=== PATIENT | male | born 1985 | race American Indian/Alaskan Native ===

== ENCOUNTER 2017-11-04 09:34 | Inpatient (IN) | payer OTHER ==
[2017-11-04 10:14] LABS: Basophils % (Auto) 0.2 % (0.0-1.8); Eosinophils % (Auto) 0.2 % (0.0-4.3); Hematocrit 51.8 % (35.5-45.6); Hemoglobin 16.9 gm/dl (11.8-15.2); Mean Corpuscular HGB Conc 33 % (32-34); Mean Corpuscular Hemoglobin 27 pg (28-32); Mean Corpuscular Volume 83 fl (84-94); Platelet Count 242 K/mm3 (140-440); Red Blood Count 6.26 M/mm3 (3.65-5.03); Red Cell Distribution Width 14.2 % (13.2-15.2)
[2017-11-04 10:26] LABS: Anion Gap 34 mmol/L; BUN/Creatinine Ratio 18; Blood Urea Nitrogen 20 mg/dL (9-20); Calcium 10.1 mg/dL (8.4-10.2); Carbon Dioxide 17 mmol/L (22-30); Glucose 357 mg/dL (75-100); Sodium 138 mmol/L (137-145)
[2017-11-04 10:51] LABS: Bilirubin,Urine NEG (Negative); Blood,Urine MOD (Negative); Ketones,Urine 80 mg/dL (Negative); Leukocyte Esterase,Urine NEG (Negative); Mucus,Urine FEW /HPF; Nitrite,Urine NEG (Negative); Urobilinogen,Urine < 2.0 mg/dL (<2.0)
[2017-11-04] MEDS ORDERED: NACL 0.9% 1000 ML 1,000 ML IV ONE (11:05)
[2017-11-04] MEDS ORDERED: ZOFRAN IV ONE (11:06)
[2017-11-04 11:29] LABS: Ketones Moderate (Negative)
[2017-11-04 11:32] LABS: Amylase 35 units/L (27-131); Lipase 52 units/L (13-60)
[2017-11-04 11:36] LABS: Alanine Aminotransferase 26 units/L (7-56); Albumin 4.1 g/dL (3.9-5); Albumin/Globulin Ratio 0.9 %; Alkaline Phosphatase 159 units/L (35-129); Bilirubin,Direct 0.3 mg/dL (0-0.2); Bilirubin,Indirect 0.6 mg/dL; Total Protein 8.8 g/dL (6.3-8.2)
--- NOTE | 2017-11-04 11:36 | Emergency Department Report ---
ED Abdominal Pain HPI - General Chief Complaint: Nausea/Vomiting/Diarrhea Stated Complaint: VOMITING Time Seen by Provider: 11/04/17 10:05 Source: patient, family, old records reviewed Mode of arrival: Ambulatory Limitations: No Limitations - History of Present Illness Initial Comments: saw pcp yesterday Dr Melgoza for n/v bs was in 200's and pcp not concerned he was sent home w jun the n/v got worse here to er today -: Gradual Severity: moderate Consistency: intermittent Improves With: nothing Worsens With: other (augmentin) Context: other (hx dm; saw pcp yest) Associated Symptoms: nausea, vomiting, diarrhea. denies: fever, chills, constipation, dysuria, hematemesis, hematochezia, melena, hematuria, anorexia, syncope - Related Data Allergies Allergy/AdvReac Type Severity Reaction Status Date / Time milk Allergy Diarrhea Verified 11/04/17 09:39 ED Review of Systems ROS: Stated complaint: VOMITING Other details as noted in HPI Comment: All other systems reviewed and negative Constitutional: no symptoms reported Cardiovascular: other (no hx htn) Gastrointestinal: nausea, vomiting, diarrhea Genitourinary: other (no noted hematuria or dysruia; no freq ) ED Past Medical Hx - Past Medical History Previous Medical History?: Yes Hx Hypertension: No (denies) Hx Diabetes: Yes (Type 2) Hx Kidney Stones: No Additional medical history: home meds humulin, metformin, invocana, actos - Surgical History Past Surgical History?: Yes Additional Surgical History: Left knee - Social History Smoking Status: Never Smoker Substance Use Type: Alcohol, Prescribed ED Physical Exam - General Limitations: No Limitations General appearance: alert, in no apparent distress - Head Head exam: Present: atraumatic - Eye Eye exam: Present: PERRL, EOMI - ENT ENT exam: Present: mucous membranes moist, TM's normal bilaterally - Neck Neck exam: Present: normal inspection - Respiratory Respiratory exam: Present: normal lung sounds bilaterally - Cardiovascular Cardiovascular Exam: Present: regular rate, tachycardia (on admit; trending down w fluids) - GI/Abdominal GI/Abdominal exam: Present: soft, normal bowel sounds. Absent: distended, tenderness, guarding, rebound, rigid, diminished bowel sounds, hyperactive bowel sounds, hypoactive bowel sounds, organomegaly, mass, bruit, pulsatile mass , hernia - Rectal Rectal exam: Present: deferred - Extremities Exam Extremities exam: Present: normal inspection, full ROM - Back Exam Back exam: Present: normal inspection, full ROM. Absent: CVA tenderness (R), CVA tenderness (L) - Neurological Exam Neurological exam: Present: alert, oriented X3, CN II-XII intact, normal gait - Psychiatric Psychiatric exam: Present: normal affect, normal mood - Skin Skin exam: Present: warm, dry, intact, normal color. Absent: rash ED Course Vital Signs 11/04/17 09:39 Temperature 98.5 F Pulse Rate 115 H Respiratory 22 Rate Blood Pressure 151/107 O2 Sat by Pulse 99 Oximetry - Reevaluation(s) Reevaluation #1: 11/04/17 13:42 to er w n/v saw pcp yest worse p augment dm w inc bs yest and even inc more today despite not eating much he reports large diff in scales at dr melgoza and er- 7 pounds dec in 24 hours: ? scale issue no cp no sob non ill non toxic no fever ambulatory neuro intact no focal neuro def mom at bedside pt reports last [id number] to be 13 about 2 m ago he states he is compliant but mom states he is not he has a 8 yo child had abn urine yest at pcp hematuria today labs noted ct to ro stone ct neg fluids, insulin IV Reevaluation #2: 11/04/17 13:14 pt updated educated on poc bs dec discussed with Dr Plummer will admit given anion gap 1 Reevaluation #3: 11/04/17 13:17 hr 90 bp dec 145/90 no acute distress reports feeling better no n/v here in er taking po Reevaluation #4: 11/04/17 13:42 Dr Madison phoned- he will admit the pt pat and mother updated rn aware ED Medical Decision Making - Lab Data Result diagrams: 11/04/17 09:52 11/04/17 09:52 - Medical Decision Making see note - Differential Diagnosis ro kidney stone Critical care attestation.: If time is entered above; I have spent that time in minutes in the direct care of this critically ill patient, excluding procedure time. ED Disposition Clinical Impression: Diabetes, Hyperglycemia, Hematuria, Elevated blood pressure reading, DKA ( diabetic ketoacidoses), Vomiting Disposition: DC- OP ADMIT IP TO THIS HOSP Is pt being admited?: Yes Does the pt Need Aspirin: No Condition: Stable Additional Instructions: diabetic diet follow blood sugar hydrate well stop augment cipro as ordered today see Dr Melgoza on Monday follow up urology for hematuria CT today is normal. Referrals: SHAMEKA MELGOZA MD [Primary Care Provider] - 3-5 Days Time of Disposition: 13:17
--- NOTE | 2017-11-04 11:50 | Cat Scan Report ---
CT scan of abdomen and pelvis without IV contrast: History: Hematuria. Abdominal pain. Findings: Normal lung bases. No pleural pericardial effusion. Next normal liver spleen pancreas and gallbladder. Normal adrenals kidney parenchyma uterine bladder. No free intraperitoneal fluid or air. No evidence of adenopathy. Gaseous colon and a small volume of stool in colon. Normal appendix. No evidence of diverticulitis. Impression: Essentially negative CT scan of abdomen.
[2017-11-04] MEDS ORDERED: LIDOCAINE VISCOUS 2% PO ONE (11:51)
[2017-11-04] MEDS ORDERED: ALUM-MAG HYDROX-SIMETH 200-200-20MG/5ML PO ONE (11:51)
[2017-11-04] MEDS ORDERED: PEPCID PO ONE (11:52)
--- NOTE | 2017-11-04 13:54 | History and Physical Report ---
History of Present Illness Chief complaint: I feel sick, History of present illness: 32 YO Male with DM currently taking Invokana presents to ED for evaluation. Pt states that he has experienced weakness, Nausea, multiple episodes of vomiting, inability to tolerate oral intake, and multiple loose stool. Pt found to have elevated blood glucose and seeks medical attention. Pt seen and evaluated in ED and found to have DKA. Pt treated IAW DKA protocol and admitted to ICU. Pt denies fever, chills, CP, Palpitations, constipation, dysuria, hematemesis, hematochezia, melena, hematuria, anorexia, syncope, productive cough, prolonged travel/immobility, individual/family history of DVT/PE, or recent ill contacts. Past History Past Medical History: diabetes Past Surgical History: Other (L Knee surgery) Social history: single, lives with family. denies: smoking, alcohol abuse, prescription drug abuse Family history: diabetes, hypertension Medications and Allergies Allergies Allergy/AdvReac Type Severity Reaction Status Date / Time milk Allergy Diarrhea Verified 11/04/17 09:39 Review of Systems Constitutional: weakness, no fever, no chills, no sweats Ears, nose, mouth and throat: no ear pain, no ear discharge, no tinnitis, no decreased hearing, no nose pain Cardiovascular: no chest pain, no orthopnea, no palpitations, no rapid/ irregular heart beat, no edema Respiratory: no cough, no cough with sputum, no excessive sputum, no hemoptysis Gastrointestinal: abdominal pain, nausea, vomiting, diarrhea Genitourinary Male: no dysuria, no hematuria, no flank pain, no discharge, no urinary frequency Rectal: no pain, no incontinence, no bleeding Musculoskeletal: no neck stiffness, no neck pain, no shooting arm pain, no arm numbness/tingling Integumentary: no rash, no pruritis, no redness, no sores, no wounds Neurological: no head injury, no transient paralysis, no paralysis, no weakness , no parathesias, no numbness Psychiatric: no anxiety, no memory loss, no change in sleep habits, no sleep disturbances, no insomnia Endocrine: excessive thirst, polyuria, no cold intolerance, no heat intolerance Hematologic/Lymphatic: no easy bruising, no easy bleeding Allergic/Immunologic: no urticaria, no allergic rhinitis, no wheezing Exam - Constitutional Vitals: Temp Pulse Resp BP Pulse Ox 98.5 F 115 H 22 151/107 99 11/04/17 09:39 11/04/17 09:39 11/04/17 09:39 11/04/17 09:39 11/04/17 09:39 General appearance: Present: mild distress - EENT Eyes: Present: PERRL ENT: hearing intact, clear oral mucosa - Neck Neck: Present: supple, normal ROM - Respiratory Respiratory effort: normal Respiratory: bilateral: CTA - Cardiovascular Heart Sounds: Present: S1 & S2. Absent: rub, click - Extremities Extremities: pulses symmetrical, No edema Peripheral Pulses: within normal limits - Abdominal General gastrointestinal: Present: soft, non-tender, non-distended, normal bowel sounds Male genitourinary: Present: normal - Integumentary Integumentary: Present: clear, dry, clammy, decreased turgor - Musculoskeletal Musculoskeletal: gait normal, strength equal bilaterally - Psychiatric Psychiatric: appropriate mood/affect, intact judgment & insight - Neurologic Neurologic: CNII-XII intact, moves all extremities Results - Labs CBC & Chem 7: 11/04/17 09:52 11/04/17 09:52 Labs: Abnormal lab results 11/04/17 11/04/17 11/04/17 Range/Units 09:50 09:52 09:52 RBC 6.26 H (3.65-5.03) M/mm3 Hgb 16.9 H (11.8-15.2) gm/dl Hct 51.8 H (35.5-45.6) % MCV 83 L (84-94) fl MCH 27 L (28-32) pg Lymph % (Auto) 9.2 L (13.4-35.0) % [place] % (Auto) 7.8 H (0.0-7.3) % Lymph # 1.0 L (1.2-5.4) K/mm3 [place] # 0.9 H (0.0-0.8) K/mm3 Seg Neutrophils % 82.6 H (40.0-70.0) % Seg Neutrophils # 9.1 H (1.8-7.7) K/mm3 Chloride 92.0 L (98-107) mmol/L Carbon Dioxide 17 L (22-30) mmol/L Glucose 357 H (75-100) mg/dL POC Glucose 349 H (70-105) Direct Bilirubin (0-0.2) mg/dL Alkaline Phosphatase (35-129) units/L Total Protein (6.3-8.2) g/dL 11/04/17 Range/Units 09:52 RBC (3.65-5.03) M/mm3 Hgb (11.8-15.2) gm/dl Hct (35.5-45.6) % MCV (84-94) fl MCH (28-32) pg Lymph % (Auto) (13.4-35.0) % [place] % (Auto) (0.0-7.3) % Lymph # (1.2-5.4) K/mm3 [place] # (0.0-0.8) K/mm3 Seg Neutrophils % (40.0-70.0) % Seg Neutrophils # (1.8-7.7) K/mm3 Chloride (98-107) mmol/L Carbon Dioxide (22-30) mmol/L Glucose (75-100) mg/dL POC Glucose (70-105) Direct Bilirubin 0.3 H (0-0.2) mg/dL Alkaline Phosphatase 159 H (35-129) units/L Total Protein 8.8 H (6.3-8.2) g/dL Assessment and Plan - Patient Problems (1) DKA (diabetic ketoacidoses) Current Visit: Yes Status: Acute Qualifiers: Diabetes mellitus type: type 1 Diabetes mellitus complication detail: without coma Qualified Code(s): E10.10 - Type 1 diabetes mellitus with ketoacidosis without coma Plan to address problem: Admit to ICU, DKA protocol, serial bmp, lactic acid level, monitor anion gap, IVF resuscitation, Insulin drip The high probability of a clinically significant, sudden or life threatening deterioration of the [endocrine, neurologic, renal] system(s) required my full and direct attention, intervention and personal management. The aggregate critical care time was [65] minutes. This time is in addition to time spent performing reported procedures but includes the following: [x] Data Review and interpretation [x] Patient assessment and monitoring of vital signs [x] Documentation [x] Medication orders and management (2) Intractable nausea and vomiting Current Visit: Yes Status: Acute Plan to address problem: Anti emetic therapy, IVF resuscitation, sips of clears (3) Accelerated hypertension Current Visit: Yes Status: Acute Plan to address problem: Monitor BP q shift, IV hydralazine prn for systolic above 155 (4) Metabolic acidosis Current Visit: Yes Status: Acute Plan to address problem: serial bmp, IVF resuscitation, treat dka, (5) DVT prophylaxis Current Visit: Yes Status: Acute Plan to address problem: scd to ble while in bed
[2017-11-04] MEDS ORDERED: DULCOLAX PR PRN (13:56)
[2017-11-04] MEDS ORDERED: ALUM-MAG HYDROX-SIMETH 200-200-20MG/5ML PO PRN (13:56)
[2017-11-04] MEDS ORDERED: D50W (25GM) Syringe IV PRN (13:56)
[2017-11-04] MEDS ORDERED: PROVENTIL IH PRN (13:56)
[2017-11-04] MEDS ORDERED: MILK OF MAGNESIA PO PRN (13:56)
[2017-11-04] MEDS ORDERED: KCL 10MEQ/100ML 10 MEQ/100 ML BAG IV SCH (14:00)
[2017-11-04 15:57] LABS: Anion Gap 31 mmol/L; BUN/Creatinine Ratio 22; Blood Urea Nitrogen 20 mg/dL (9-20); Calcium 9.1 mg/dL (8.4-10.2); Carbon Dioxide 16 mmol/L (22-30); Chloride 95.1 mmol/L (98-107); Glucose 308 mg/dL (75-100); Potassium 5.1 mmol/L (3.6-5.0); Sodium 137 mmol/L (137-145)
[2017-11-04] MEDS: NovoLIN R 100 UNITS in NACL 0.9% 99 ML IV SCH (16:25)
[2017-11-04 17:01] LABS: Anion Gap 30 mmol/L; BUN/Creatinine Ratio 21; Blood Urea Nitrogen 19 mg/dL (9-20); Calcium 9.2 mg/dL (8.4-10.2); Carbon Dioxide 18 mmol/L (22-30); Chloride 94.3 mmol/L (98-107); Glucose 293 mg/dL (75-100); Sodium 137 mmol/L (137-145)
[2017-11-04 19:09] LABS: Anion Gap 27 mmol/L; BUN/Creatinine Ratio 24; Blood Urea Nitrogen 19 mg/dL (9-20); Calcium 9.2 mg/dL (8.4-10.2); Carbon Dioxide 19 mmol/L (22-30); Chloride 95.9 mmol/L (98-107); Glucose 216 mg/dL (75-100); Potassium 4.5 mmol/L (3.6-5.0); Sodium 137 mmol/L (137-145)
[2017-11-04 22:07] LABS: Anion Gap 19 mmol/L; BUN/Creatinine Ratio 19; Blood Urea Nitrogen 17 mg/dL (9-20); Calcium 9.4 mg/dL (8.4-10.2); Carbon Dioxide 25 mmol/L (22-30); Chloride 97.8 mmol/L (98-107); Glucose 173 mg/dL (75-100); Potassium 4.3 mmol/L (3.6-5.0); Sodium 137 mmol/L (137-145)
[2017-11-05 02:03] LABS: Anion Gap 18 mmol/L; BUN/Creatinine Ratio 23; Blood Urea Nitrogen 16 mg/dL (9-20); Calcium 9.1 mg/dL (8.4-10.2); Carbon Dioxide 22 mmol/L (22-30); Chloride 98.5 mmol/L (98-107); Glucose 164 mg/dL (75-100); Potassium 3.8 mmol/L (3.6-5.0); Sodium 135 mmol/L (137-145)
[2017-11-05] MEDS: D5W/0.45% NACL/KCL 20 MEQ 20 MEQ/1,000 ML BAG IV SCH ×2 (04:43→11:43)
[2017-11-05 05:09] LABS: BUN/Creatinine Ratio 24; Blood Urea Nitrogen 17 mg/dL (9-20); Calcium 8.8 mg/dL (8.4-10.2); Carbon Dioxide 21 mmol/L (22-30); Glucose 154 mg/dL (75-100)
[2017-11-05 05:10] LABS: Anion Gap 21 mmol/L; Chloride 99.9 mmol/L (98-107); Potassium 4.2 mmol/L (3.6-5.0); Sodium 138 mmol/L (137-145)
[2017-11-05] MEDS ORDERED: VANCOMYCIN/NS 1 GM/250 ML 1 GM/250 ML BAG IV ONE (09:57)
[2017-11-05] MEDS ORDERED: VANCOMYCIN PHARMACY TO DOSE IV SCH (10:00)
[2017-11-05] MEDS ORDERED: VANCOMYCIN 2,000 MG in NACL 0.9% 500 ML 500 ML IV NR (11:00)
[2017-11-05] MEDS: NovoLIN R 100 UNITS in NACL 0.9% 99 ML IV SCH (11:42)
[2017-11-05] MEDS ORDERED: PNEUMOVAX 23 IM ONE (12:00)
[2017-11-05] MEDS: CLEOCIN 300 MG/50 mL 300 MG/50 ML BAG IV SCH ×3 (12:51→23:53)
--- NOTE | 2017-11-05 12:54 | Cat Scan Report ---
CT scan of right femur: History: Right eye abscess. Findings: There is no lytic lesion, periosteal reaction or fracture noted of the right femur. There is mild prominence of the right vastus lateralis muscle compared to left although no distinct mass is identified. The subcutaneous tissue appears normal. Impression: Prominent right vastus lateralis may be normal or related to cellulitis. If clinically indicated MRI scan may be advised for further evaluation.
--- NOTE | 2017-11-05 13:10 | Consultation ---
History of Present Illness Consult date: 11/05/17 Reason for consult: other (diabetic ketoacidosis) History of present illness: History of present illness: 32 YO Male with DM currently taking Invokana presents to ED for evaluation. Pt states that he has experienced weakness, Nausea, multiple episodes of vomiting, inability to tolerate oral intake, and multiple loose stool. Pt found to have elevated blood glucose and seeks medical attention. Pt seen and evaluated in ED and found to have DKA. Pt treated IAW DKA protocol and admitted to ICU. Pt denies fever, chills, CP, Palpitations, constipation, dysuria, hematemesis, hematochezia, melena, hematuria, anorexia, syncope, productive cough, prolonged travel/immobility, individual/family history of DVT/PE, or recent ill contacts. Since admission patient has been treated with IV insulin with significant improvement in his symptoms and blood sugar and acidosis. He also found to have an abscess in his right thigh. He is currently on antibiotics. Past History Past Medical History: diabetes Past Surgical History: Other (L Knee surgery) Social history: single, lives with family. denies: smoking, alcohol abuse, prescription drug abuse Family history: diabetes, hypertension Medications and Allergies Allergies Allergy/AdvReac Type Severity Reaction Status Date / Time milk Allergy Diarrhea Verified 11/04/17 09:39 Home Medications Medication Instructions Recorded Confirmed Last Taken Type Avis Pen 60 mg SUB-Q QWEEK 11/04/17 11/04/17 11/02/17 09:00 History Humulin N 40 units SUB-Q BID 11/04/17 11/04/17 11/02/17 09:30 History Invokana 300 mg PO BID 11/04/17 11/04/17 11/02/17 History Pioglitazone HCl [Actos] 30 mg PO QDAY 11/04/17 11/04/17 10/25/17 09:00 History metFORMIN 250 mg PO BID 11/04/17 11/04/17 11/02/17 09:00 History Active Meds: Active Medications Al Hydrox/Mg Hydrox/Simethicone (Alum-Mag Hydrox-Simeth [id number]/5ml) 30 ml PO Q4H PRN PRN Reason: Indigestion Albuterol (Proventil) 2.5 mg IH Q3HRT PRN PRN Reason: Shortness Of Breath Bisacodyl (Dulcolax) 10 mg IN QDAY PRN PRN Reason: constipation unrelieved by MOM Dextrose (D50w (25gm) Syringe) 0 ml IV PRN PRN PRN Reason: Hypoglycemia Insulin Human Regular 100 (units/ Sodium Chloride) 100 mls @ 1 mls/hr IV TITR RAGHAVENDRA; 1 UNITS/HR PRN Reason: Protocol Last Admin: 11/05/17 11:42 Dose: 6 units/hr, 6 mls/hr Potassium Chloride/Dextrose/Sod Cl (D5w/0.45% Nacl/Kcl 20 Meq) 20 meq in 1,000 mls @ 125 mls/hr IV DIRECT RAGHAVENDRA Last Admin: 11/05/17 11:43 Dose: 125 mls/hr Clindamycin HCl (Cleocin 300 Mg/50 Ml) 300 mg in 50 mls @ 100 mls/hr IV Q6HR RAGHAVENDRA PRN Reason: Protocol Last Admin: 11/05/17 12:51 Dose: 100 mls/hr Vancomycin HCl 1,500 mg/ (Sodium Chloride) 515 mls @ 333.333 mls/hr IV Q12H RAGHAVENDRA Piperacillin Sod/Tazobactam Sod (Zosyn/Ns 4.5gm/100ml) 4.5 gm in 100 mls @ 200 mls/hr IV Q8HR RAGHAVENDRA PRN Reason: Protocol Magnesium Hydroxide (Milk Of Magnesia) 30 ml PO Q4H PRN PRN Reason: Constipation Vancomycin HCl (Vancomycin Pharmacy To Dose) 1 each IV PKCONSULT RAGHAVENDRA PRN Reason: Protocol Review of Systems All systems: negative Constitutional: anorexia, fatigue, weakness Respiratory: shortness of breath Gastrointestinal: nausea Musculoskeletal: other (pain in right thigh) Physical Examination Vital signs: Vital Signs Temp Pulse Resp BP Pulse Ox 98.5 F 115 H 22 151/107 99 11/04/17 09:39 11/04/17 09:39 11/04/17 09:39 11/04/17 09:39 11/04/17 09:39 General appearance: no acute distress, alert Eyes: non-icteric ENT: oropharynx moist Neck: supple, no JVD Effort: normal Ascultation: Bilateral: clear Cardiovascular: regular rate and rhythm Gastrointestinal: normoactive bowel sounds, soft, non-tender Extremities: other (abscess noted on proximal right medial thigh) Gait: other (not examined) normal mental status mood appropriate Results - Laboratory Findings CBC and BMP: 11/04/17 09:52 11/05/17 04:30 Abnormal lab findings: Abnormal Labs 11/04/17 11/04/17 11/04/17 09:50 09:52 09:52 RBC 6.26 H Hgb 16.9 H Hct 51.8 H MCV 83 L MCH 27 L Lymph % (Auto) 9.2 L [place] % (Auto) 7.8 H Lymph # 1.0 L [place] # 0.9 H Seg Neutrophils % 82.6 H Seg Neutrophils # 9.1 H Sodium Potassium Chloride 92.0 L Carbon Dioxide 17 L Creatinine Glucose 357 H POC Glucose 349 H Magnesium Direct Bilirubin Alkaline Phosphatase Total Protein 11/04/17 11/04/17 11/04/17 09:52 12:38 15:10 RBC Hgb Hct MCV MCH Lymph % (Auto) [place] % (Auto) Lymph # [place] # Seg Neutrophils % Seg Neutrophils # Sodium Potassium 5.1 H Chloride 95.1 L Carbon Dioxide 16 L Creatinine Glucose 308 H POC Glucose 283 H Magnesium 2.40 H Direct Bilirubin 0.3 H Alkaline Phosphatase 159 H Total Protein 8.8 H 11/04/17 11/04/17 11/04/17 16:22 16:35 17:23 RBC Hgb Hct MCV MCH Lymph % (Auto) [place] % (Auto) Lymph # [place] # Seg Neutrophils % Seg Neutrophils # Sodium Potassium Chloride 94.3 L Carbon Dioxide 18 L Creatinine Glucose 293 H POC Glucose 295 H 307 H Magnesium Direct Bilirubin Alkaline Phosphatase Total Protein 11/04/17 11/04/17 11/04/17 18:15 18:37 19:32 RBC Hgb Hct MCV MCH Lymph % (Auto) [place] % (Auto) Lymph # [place] # Seg Neutrophils % Seg Neutrophils # Sodium Potassium Chloride 95.9 L Carbon Dioxide 19 L Creatinine Glucose 216 H POC Glucose 234 H 190 H Magnesium Direct Bilirubin Alkaline Phosphatase Total Protein 11/04/17 11/04/17 11/04/17 20:12 21:07 21:40 RBC Hgb Hct MCV MCH Lymph % (Auto) [place] % (Auto) Lymph # [place] # Seg Neutrophils % Seg Neutrophils # Sodium Potassium Chloride 97.8 L Carbon Dioxide Creatinine Glucose 173 H POC Glucose 180 H 185 H Magnesium Direct Bilirubin Alkaline Phosphatase Total Protein 11/04/17 11/04/17 11/04/17 21:59 23:09 23:58 RBC Hgb Hct MCV MCH Lymph % (Auto) [place] % (Auto) Lymph # [place] # Seg Neutrophils % Seg Neutrophils # Sodium Potassium Chloride Carbon Dioxide Creatinine Glucose POC Glucose 168 H 161 H 157 H Magnesium Direct Bilirubin Alkaline Phosphatase Total Protein 11/05/17 11/05/17 11/05/17 00:52 01:15 02:16 RBC Hgb Hct MCV MCH Lymph % (Auto) [place] % (Auto) Lymph # [place] # Seg Neutrophils % Seg Neutrophils # Sodium 135 L Potassium Chloride Carbon Dioxide Creatinine 0.7 L Glucose 164 H POC Glucose 152 H 165 H Magnesium Direct Bilirubin Alkaline Phosphatase Total Protein 11/05/17 11/05/17 11/05/17 03:29 04:30 04:36 RBC Hgb Hct MCV MCH Lymph % (Auto) [place] % (Auto) Lymph # [place] # Seg Neutrophils % Seg Neutrophils # Sodium Potassium Chloride Carbon Dioxide 21 L Creatinine 0.7 L Glucose 154 H POC Glucose 155 H 133 H Magnesium Direct Bilirubin Alkaline Phosphatase Total Protein 11/05/17 11/05/17 11/05/17 04:58 06:20 06:51 RBC Hgb Hct MCV MCH Lymph % (Auto) [place] % (Auto) Lymph # [place] # Seg Neutrophils % Seg Neutrophils # Sodium Potassium Chloride Carbon Dioxide Creatinine Glucose POC Glucose 133 H 162 H 181 H Magnesium Direct Bilirubin Alkaline Phosphatase Total Protein Assessment and Plan Impression: Diabetic ketoacidosis, now improving, probably precipitated by infection Abscess right thigh Recommendations: Agree with antibiotic therapy. Continue with DKA protocol. Consider surgical evaluation for possible incision and drainage Total critical care time 31 minute
[2017-11-05 15:35] LABS: Anion Gap 19 mmol/L; BUN/Creatinine Ratio 16; Blood Urea Nitrogen 11 mg/dL (9-20); Calcium 8.8 mg/dL (8.4-10.2); Carbon Dioxide 24 mmol/L (22-30); Chloride 99.8 mmol/L (98-107); Glucose 148 mg/dL (75-100); Potassium 4.1 mmol/L (3.6-5.0); Sodium 139 mmol/L (137-145)
[2017-11-05] MEDS: ZOSYN/NS 4.5GM/100ML 4.5 GM/100 ML VIAL IV SCH ×2 (16:17→22:45)
[2017-11-05] MEDS ORDERED: D50W (25GM) Syringe IV PRN (17:24)
--- NOTE | 2017-11-05 20:46 | Progress Note ---
Assessment and Plan Assessment and plan: - Patient Problems (1) DKA (diabetic ketoacidoses) * Check hemoglobin A1c * Transition to long acting insulin, serial bmp, lactic acid level, monitor anion gap, IVF resuscitation, Insulin drip (2) Intractable nausea and vomiting * Anti emetic therapy, IVF resuscitation, sips of clears (3) Accelerated hypertension * Monitor BP q shift, IV hydralazine prn for systolic above 155 (4) Metabolic acidosis * serial bmp, IVF resuscitation, treat dka, (5) Thigh abscess * CT Thigh to evaluate abscess * start on vacomycin and Clindamycin (6)DVT prophylaxis scd to ble while in bed The high probability of a clinically significant, sudden or life threatening deterioration of the [endocrine, neurologic, renal] system(s) required my full and direct attention, intervention and personal management. The aggregate critical care time was [65] minutes. This time is in addition to time spent performing reported procedures but includes the following: [x] Data Review and interpretation [x] Patient assessment and monitoring of vital signs [x] Documentation [x] Medication orders and management History Interval history: Patient seen and examined, in no acute distress. Resting comfortable, Reports he recently noted right thigh lesions that was draining this morning Hospitalist Physical - Constitutional Vitals: Temp Pulse Resp BP Pulse Ox 98.9 F 93 H 22 124/83 100 11/05/17 15:59 11/05/17 18:20 11/05/17 18:20 11/05/17 18:20 11/05/17 18:20 General appearance: Present: no acute distress - EENT Eyes: Present: PERRL, EOM intact ENT: hearing intact, clear oral mucosa - Neck Neck: Present: supple, normal ROM - Cardiovascular Rhythm: regular Heart Sounds: Present: S1 & S2 - Extremities Extremities: no ischemia, pulses intact, pulses symmetrical, No edema, normal temperature, normal color, Full ROM Peripheral Pulses: within normal limits - Abdominal General gastrointestinal: soft, non-tender, non-distended, normal bowel sounds - Integumentary Integumentary: Present: warm, erythema (right thigh abscess) - Psychiatric Psychiatric: appropriate mood/affect, intact judgment & insight, cooperative - Neurologic Neurologic: CNII-XII intact - Allied Health Allied health notes reviewed: nursing, PT Results - Labs CBC & Chem 7: 11/06/17 05:30 11/06/17 05:30 Labs: Laboratory Last Values WBC 11.0 K/mm3 (4.5-11.0) 11/04/17 09:52 RBC 6.26 M/mm3 (3.65-5.03) H 11/04/17 09:52 Hgb 16.9 gm/dl (11.8-15.2) H 11/04/17 09:52 Hct 51.8 % (35.5-45.6) H 11/04/17 09:52 MCV 83 fl (84-94) L 11/04/17 09:52 MCH 27 pg (28-32) L 11/04/17 09:52 MCHC 33 % (32-34) 11/04/17 09:52 RDW 14.2 % (13.2-15.2) 11/04/17 09:52 Plt Count 242 K/mm3 (140-440) 11/04/17 09:52 Lymph % (Auto) 9.2 % (13.4-35.0) L 11/04/17 09:52 Bent % (Auto) 7.8 % (0.0-7.3) H 11/04/17 09:52 Eos % (Auto) 0.2 % (0.0-4.3) 11/04/17 09:52 Baso % (Auto) 0.2 % (0.0-1.8) 11/04/17 09:52 Lymph # 1.0 K/mm3 (1.2-5.4) L 11/04/17 09:52 Bent # 0.9 K/mm3 (0.0-0.8) H 11/04/17 09:52 Eos # 0.0 K/mm3 (0.0-0.4) 11/04/17 09:52 Baso # 0.0 K/mm3 (0.0-0.1) 11/04/17 09:52 Seg Neutrophils % 82.6 % (40.0-70.0) H 11/04/17 09:52 Seg Neutrophils # 9.1 K/mm3 (1.8-7.7) H 11/04/17 09:52 Sodium 139 mmol/L (137-145) 11/05/17 15:00 Potassium 4.1 mmol/L (3.6-5.0) 11/05/17 15:00 Chloride 99.8 mmol/L (98-107) 11/05/17 15:00 Carbon Dioxide 24 mmol/L (22-30) 11/05/17 15:00 Anion Gap 19 mmol/L 11/05/17 15:00 BUN 11 mg/dL (9-20) 11/05/17 15:00 Creatinine 0.7 mg/dL (0.8-1.5) L 11/05/17 15:00 Estimated GFR > 60 ml/min 11/05/17 15:00 BUN/Creatinine Ratio 16 % 11/05/17 15:00 Glucose 148 mg/dL (75-100) H 11/05/17 15:00 POC Glucose 267 (70-105) H 11/05/17 18:00 Hemoglobin A1c 13.0 % (4-6) H 11/05/17 17:45 Ketones Quantitative Moderate (Negative) 11/04/17 09:52 Lactic Acid 1.10 mmol/L (0.7-2.0) 11/05/17 10:36 Calcium 8.8 mg/dL (8.4-10.2) 11/05/17 15:00 Phosphorus 3.20 mg/dL (2.5-4.5) 11/04/17 15:10 Magnesium 2.40 mg/dL (1.7-2.3) H 11/04/17 15:10 Total Bilirubin 0.90 mg/dL (0.1-1.2) 11/04/17 09:52 Direct Bilirubin 0.3 mg/dL (0-0.2) H 11/04/17 09:52 Indirect Bilirubin 0.6 mg/dL 11/04/17 09:52 AST 17 units/L (5-40) 11/04/17 09:52 ALT 26 units/L (7-56) 11/04/17 09:52 Alkaline Phosphatase 159 units/L (35-129) H 11/04/17 09:52 Total Protein 8.8 g/dL (6.3-8.2) H 11/04/17 09:52 Albumin 4.1 g/dL (3.9-5) 11/04/17 09:52 Albumin/Globulin Ratio 0.9 % 11/04/17 09:52 Triglycerides 152 mg/dL (2-149) H 11/05/17 17:45 Cholesterol 159 mg/dL (50-199) 11/05/17 17:45 LDL Cholesterol Direct 102 mg/dL (50-130) 11/05/17 17:45 HDL Cholesterol 27 mg/dL (40-59) L 11/05/17 17:45 Cholesterol/HDL Ratio 5.88 % 11/05/17 17:45 Amylase 35 units/L (27-131) 11/04/17 09:52 Lipase 52 units/L (13-60) 11/04/17 09:52 Urine Color Yellow (Yellow) 11/04/17 10:10 Urine Turbidity Clear (Clear) 11/04/17 10:10 Urine pH 5.0 (5.0-7.0) 11/04/17 10:10 Ur Specific [place] 1.020 (1.003-1.030) 11/04/17 10:10 Urine Protein 30 mg/dl mg/dL (Negative) 11/04/17 10:10 Urine Glucose (UA) >=500 mg/dL (Negative) 11/04/17 10:10 Urine Ketones 80 mg/dL (Negative) 11/04/17 10:10 Urine Blood Mod (Negative) 11/04/17 10:10 Urine Nitrite Neg (Negative) 11/04/17 10:10 Urine Bilirubin Neg (Negative) 11/04/17 10:10 Urine Urobilinogen < 2.0 mg/dL (<2.0) 11/04/17 10:10 Ur Leukocyte Esterase Neg (Negative) 11/04/17 10:10 Urine WBC (Auto) 2.0 /HPF (0.0-6.0) 11/04/17 10:10 Urine RBC (Auto) 4.0 /HPF (0.0-6.0) 11/04/17 10:10 Urine Mucus Few /HPF 11/04/17 10:10 - Imaging and Cardiology CT scan - pelvis: pending
[2017-11-05] MEDS ORDERED: HUMULIN N SUB-Q SCH (22:00)
[2017-11-05] MEDS ORDERED: INSULIN NPH SUB-Q SCH (22:00)
[2017-11-05] MEDS ORDERED: VANCOMYCIN 1,500 MG in NACL 0.9% 500 ML 500 ML IV SCH (22:00)
[2017-11-05] MEDS: NOVOLOG SUB-Q SCH (22:59)
[2017-11-06] MEDS: CLEOCIN 300 MG/50 mL 300 MG/50 ML BAG IV SCH ×2 (05:53→12:03)
[2017-11-06 05:59] LABS: Mean Corpuscular HGB Conc 33 % (32-34); Mean Corpuscular Hemoglobin 27 pg (28-32); Mean Corpuscular Volume 81 fl (84-94); Platelet Count 190 K/mm3 (140-440); Red Blood Count 5.06 M/mm3 (3.65-5.03); White Blood Count 4.8 K/mm3 (4.5-11.0)
[2017-11-06 06:03] LABS: Hemoglobin 13.4 gm/dl (11.8-15.2)
[2017-11-06] MEDS: ZOSYN/NS 4.5GM/100ML 4.5 GM/100 ML VIAL IV SCH (06:04)
[2017-11-06 06:09] LABS: INR 0.95 (0.87-1.13)
[2017-11-06 06:25] LABS: Anion Gap 18 mmol/L; BUN/Creatinine Ratio 14; Blood Urea Nitrogen 10 mg/dL (9-20); Calcium 8.7 mg/dL (8.4-10.2); Carbon Dioxide 22 mmol/L (22-30); Chloride 101.3 mmol/L (98-107); Glucose 233 mg/dL (75-100); Potassium 3.5 mmol/L (3.6-5.0); Sodium 138 mmol/L (137-145)
[2017-11-06 08:03] VITALS: BP 113/72
[2017-11-06] MEDS: NOVOLOG SUB-Q SCH ×2 (09:14→12:12)
--- NOTE | 2017-11-06 10:31 | Progress Note ---
Subjective Narrative: talked to Pt CT showed no collection , no drainage needed , may be D/C on antibiotics , to see me in 10 days , Objective Vital Signs - 12hr 11/05/17 11/06/17 22:57 07:46 Temperature 99.6 F 99.3 F Pulse Rate 98 H 81 Respiratory 18 20 Rate Blood Pressure 124/76 113/72 O2 Sat by Pulse 94 96 Oximetry - Labs 11/06/17 05:30 11/06/17 05:30 Diabetes panel 11/05/17 11/05/17 11/05/17 Range/Units 15:00 17:45 17:45 Sodium 139 (137-145) mmol/L Potassium 4.1 (3.6-5.0) mmol/L Chloride 99.8 (98-107) mmol/L Carbon Dioxide 24 (22-30) mmol/L BUN 11 (9-20) mg/dL Creatinine 0.7 L (0.8-1.5) mg/dL Glucose 148 H (75-100) mg/dL Hemoglobin A1c 13.0 H (4-6) % Calcium 8.8 (8.4-10.2) mg/dL Triglycerides 152 H (2-149) mg/dL HDL Cholesterol 27 L (40-59) mg/dL 11/06/17 Range/Units 05:30 Sodium 138 (137-145) mmol/L Potassium 3.5 L (3.6-5.0) mmol/L Chloride 101.3 (98-107) mmol/L Carbon Dioxide 22 (22-30) mmol/L BUN 10 (9-20) mg/dL Creatinine 0.7 L (0.8-1.5) mg/dL Glucose 233 H (75-100) mg/dL Hemoglobin A1c (4-6) % Calcium 8.7 (8.4-10.2) mg/dL Triglycerides (2-149) mg/dL HDL Cholesterol (40-59) mg/dL Calcium panel 11/05/17 11/06/17 Range/Units 15:00 05:30 Calcium 8.8 8.7 (8.4-10.2) mg/dL Pituitary panel 11/05/17 11/06/17 Range/Units 15:00 05:30 Sodium 139 138 (137-145) mmol/L Potassium 4.1 3.5 L (3.6-5.0) mmol/L Chloride 99.8 101.3 (98-107) mmol/L Carbon Dioxide 24 22 (22-30) mmol/L BUN 11 10 (9-20) mg/dL Creatinine 0.7 L 0.7 L (0.8-1.5) mg/dL Glucose 148 H 233 H (75-100) mg/dL Calcium 8.8 8.7 (8.4-10.2) mg/dL Adrenal panel 11/05/17 11/06/17 Range/Units 15:00 05:30 Sodium 139 138 (137-145) mmol/L Potassium 4.1 3.5 L (3.6-5.0) mmol/L Chloride 99.8 101.3 (98-107) mmol/L Carbon Dioxide 24 22 (22-30) mmol/L BUN 11 10 (9-20) mg/dL Creatinine 0.7 L 0.7 L (0.8-1.5) mg/dL Glucose 148 H 233 H (75-100) mg/dL Calcium 8.8 8.7 (8.4-10.2) mg/dL
--- NOTE | 2017-11-06 11:16 | Discharge Summary ---
Providers - Providers Date of Admission: 11/04/17 13:56 Attending physician: JULIETTE SAHU MD 11/04/17 23:38 Consult to Physician [CONS] Routine Consulting Provider: ERIK FAJARDO Reason For Exam: DKA Place consult to:: Dr. Decker Notified:: Yes Phone number called:: [phone] Was contact made?: Yes If yes, spoke with:: Elina Time called:: 23:44 11/05/17 00:48 Consult to Wound/ET Nurse [CONS] Routine Reason For Exam: right inner thigh 11/05/17 09:56 Consult to Physician [CONS] Routine Consulting Provider: LEIGHANN OLEA Reason For Exam: right thigh abscess Place consult to:: Dr. Olea Notified:: Dr. Olea Phone number called:: [phone] Was contact made?: Yes If yes, spoke with:: Dr. Olea Time called:: 10:24 11/05/17 09:58 Consult to Physician [CONS] Routine Consulting Provider: JORJE CERVANTES Reason For Exam: right thigh abscess Place consult to:: Alexy Notified:: Alexy Phone number called:: [phone] Was contact made?: Yes If yes, spoke with:: Dr. Tracey Time called:: 10:22 Comment:: will see patient on tomorrow Primary care physician: SHAMEKA MELGOZA Hospitalization Reason for admission: anethesia Condition: Stable Hospital course: 32 YO Male with DM currently taking Invokana presents to ED for evaluation. Pt states that he has experienced weakness, Nausea, multiple episodes of vomiting, inability to tolerate oral intake, and multiple loose stool. Pt found to have elevated blood glucose and seeks medical attention. Pt seen and evaluated in ED and found to have DKA. Pt treated IAW DKA protocol and admitted to ICU. Pt denies fever, chills, CP, Palpitations, constipation, dysuria, hematemesis, hematochezia, melena, hematuria, anorexia, syncope, productive cough, prolonged travel/immobility, individual/family history of DVT/PE, or recent ill contacts. Patient was treated with DKA protocol, imaging studies of the Thigh did not reveal deep abscess. Patient was placed on CLINDAMYCIN and advised to follow up with surgery. we also advised extensively about Blood glucose control considering elevated A1C of 13 Discharge Diagnosis (1) DKA (diabetic ketoacidoses) (2) Intractable nausea and vomiting (3) Accelerated hypertension (4) Metabolic acidosis (5) Thigh abscess Disposition: DC-01 TO HOME OR SELFCARE Time spent for discharge: 35 mins Core Measure Documentation - Palliative Care Palliative Care/ Comfort Measures: Not Applicable - Core Measures Any of the following diagnoses?: none - VTE Discharge Requirements Deep Vein Thrombosis/Pulmonary Embolism Present on Admission: No Exam - Physical Exam Narrative exam: General appearance: Present: no acute distress - EENT Eyes: Present: PERRL, EOM intact ENT: hearing intact, clear oral mucosa - Neck Neck: Present: supple, normal ROM - Cardiovascular Rhythm: regular Heart Sounds: Present: S1 & S2 - Extremities Extremities: no ischemia, pulses intact, pulses symmetrical, No edema, normal temperature, normal color, Full ROM Peripheral Pulses: within normal limits - Abdominal General gastrointestinal: soft, non-tender, non-distended, normal bowel sounds - Integumentary Integumentary: Present: warm, erythema (right thigh abscess) - Psychiatric Psychiatric: appropriate mood/affect, intact judgment & insight, cooperative - Neurologic Neurologic: CNII-XII intact - Allied Health Allied health notes reviewed: nursing, PT - Constitutional Vitals: Temp Pulse Resp BP Pulse Ox 99.3 F 81 20 113/72 96 11/06/17 07:46 11/06/17 07:46 11/06/17 07:46 11/06/17 07:46 11/06/17 07:46 Plan Activity: advance as tolerated, fall precautions Diet: diabetic Special Instructions: record daily weights, record daily BP diary, record blood sugar diary Follow up with: SHAMEKA MELGOZA MD [Primary Care Provider] - 3-5 Days LEIGHANN OLEA MD [Staff Physician] - 10 Days Forms: Work/School Release Form Prescriptions: Clindamycin [Clindamycin CAP] 450 mg PO Q8HR 10 Days capsule
--- NOTE | 2017-11-06 14:27 | Consultation ---
REASON FOR CONSULTATION: I was asked by Dr. Diez to see this man. HISTORY OF PRESENT ILLNESS: He is a 32-year-old black male who is a known case of diabetes mellitus diagnosed about 10 years ago. He is on insulin and metformin that he took for some time. He was found to have a generalized weakness and admitted because of a small nodule on the medial aspect of his right leg oozing purulent material. He told me it drained a quite a bit. The patient was found to have a DKA and thus he was admitted for further evaluation. The reason for me seeing him is that ? abscess in the medial aspect of the right thigh aspect. The patient gives a history of a meniscus surgery on his left side in the past. He is a healthy young man otherwise. ALLERGIES: Allergic reactions were denied. MEDICATIONS: As above. PHYSICAL EXAMINATION: GENERAL: A preserved healthy-looking young man who is in no distress. He is a very healthy looking. HEAD AND NECK: Negative. Supple. CHEST: Essentially clear. HEART: Sound normal. ABDOMEN: Protuberant, soft, benign. EXTREMITIES: Medially, there is a small sinus tract that is about 4 x 4 mm oozing purulent material. LABORATORY DATA: Apparently, cultures were taken. X-ray showed no evidence of any edema otherwise. IMPRESSION: Localized infection that is draining, right upper thigh. We will decide at this point to have a wider incision and pack it and go from there. This will be done under local anesthesia, hopefully tomorrow. JOB# [id number]
[2017-11-06] MEDS ORDERED: VANCOMYCIN 1,500 MG in NACL 0.9% 500 ML 500 ML IV SCH (20:00)
== END 2017-11-06 13:40 | disposition home or self-care (01) | DRG 638 ==
LOC: ED 09:34 → CC1 13:56 → 4A 18:24 → CC1 18:34 → 3A 11-05 18:47
PROVIDERS: ADMIT Internal Medicine; ATTEND Internal Medicine
PROC: 3E0234Z Introduction of Serum, Toxoid and Vaccine into Muscle, Percutaneous Approach (ICD-10-PCS; principal; 2017-11-05)
DX: E11.10 Type 2 diabetes mellitus with ketoacidosis without coma (principal); L02.415 Cutaneous abscess of right lower limb; E11.65 Type 2 diabetes mellitus with hyperglycemia; R31.9 Hematuria, unspecified; Z83.3 Family history of diabetes mellitus; Z82.49 Family history of ischemic heart disease and other diseases of the circulatory system; Z91.011 Allergy to milk products; Z79.899 Other long term (current) drug therapy; Z79.4 Long term (current) use of insulin; Z23 Encounter for immunization
CPT/HCPCS: 36415; 74176; 80048; 80061; 80074; 81001; 82010; 82140; 82150; 82962; 83036; 83690; 83735; 84100; 85025; 85027; 85610; 87040; 90732; 96374; 96375; J1815; J2405; J2543; J3370; J3480; J7030; J7040; Q9967